=== PATIENT | female | born 2005 | race Hispanic/Latino ===

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

== ENCOUNTER 2025-02-18 00:54 | Emergency (ER) | payer BC ==
--- OUTSIDE RECORDS SUMMARY | 2025-02-18 00:57 | XMS REPORT | Continuity of Care Document ---
Author Name Unknown Address [address] [place] [address] [facility] [place] Address 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 Name Role Phone Aryan Cortes Primary Care Physician [phone] VICKI BARNES Attending Clinician Unavailable Vitor Youssef CPhT Attending Clinician Unavailable GULSHAN LLANES Attending Clinician Unavail able GULSHAN LLANES Attending Clinician Unavail able Gulshan Llanes MD Attending Clinician [phone] GULSHAN LLANES Admitting Clinician Unavail able Payers Payer Name Policy Type Policy Number Effective Date Expirati on Date Source [employer] PPO AND OUT OF STATE [id number] 2020 00:00:00 2021 00:00:00 Allergies, Adverse Reactions, Alerts Allergy Name Allergy Type Status Severity Reaction(s) Onset Date Inactive Date Treating Clinician Comments Source FIRE ANT DRUG INGREDI Active Swelling 01-25 00:00: 00 [facility] Fire Ant Propensi ty to adverse reaction s Active Swelling 01-25 00:00: 00 [facility] Social History Social Habit Start Date Stop Date Quantity Comments Source [facility] of Social function 2024-01-26 00:00:00 2024-01-26 00:00:00 [facility] Tobacco use and exposure 2024-01-26 00:00:00 2024-01-26 00:00:00 Smokeless tobacco non-user [facility] Sex assigned at 2005 00:00:00 2005 00:00:00 [facility] Smoking Status Start Date Stop Date Source Never smoked tobacco [facility] Medications Ordered Medication Name Filled Medication Name Start Date Stop Date Current Medication? Ordering Clinician Indication Dosage Frequency Signature (SIG) Comments Components Source rimegepant (NURTEC ODT) 75 mg TbDL 01-31 00:00: 00 Yes [id number] 75mg Take 1 tablet by mouth as needed for Pain (scale 7-10). [facility] topiramate 25 mg tablet 01-31 00:00: 00 03-02 04:59 :00 No [id number] Take 1 tablet by mouth daily for 7 days, THEN 2 tablets daily for 23 days. [facility] aripiprazol e lauroxil (ARISTADA IM) 01-25 10:12: 05 Yes 10mg by Intramuscu lar route. [facility] zolpidem (AMBIEN) 5 mg tablet 01-25 10:12: 05 Yes 5mg Take 1 tablet by mouth at bedtime as needed for Insomnia. [facility] Vital Signs Vital Name Observation Time Observation Value Comments S sly Systolic blood pressure 2024-01-26 15:08:00 104 mm[Hg] [facility] Diastolic blood pressure 2024-01-26 15:08:00 74 mm[Hg] [facility] Heart rate 2024-01-26 15:08:00 96 /min [facility] Respiratory rate 2024-01-26 15:08:00 18 /min [facility] Body height 2024-01-26 15:08:00 157.5 cm [facility] Body weight 2024-01-26 15:08:00 139.572 kg [facility] BMI 2024-01-26 15:08:00 56.28 kg/m2 [facility] Body mass index (BMI) [Percentile] Per age and sex 2024-01-26 15:08:00 100.00 % [facility] Oxygen saturation in Arterial blood by Pulse oximetry 2024-01-26 15:08:00 98 /min [facility] Procedures Procedure Date / Time Performed Performing Clinicia n Source MR BRAIN WO CONTRAST 2024-02-08 18:14:[address] [facility] Encounters Start Date/Time End Date/Time Encounter Type Admission Type Attending [facility] Care Facility Care Department Encounter ID Source 2021-09-17 22:01:37 Outpatient CRISTINAVICKI ROCK [facility] [id number] [facility] 2021-09-15 17:30:59 Outpatient HÉCTORTERRELLCECILIAVICKI ROCK [facility] [id number] [facility] 2021-04-12 14:04:39 Outpatient VICKI BARNES [facility] [id number] [facility] 2024-02-22 00:00:00 2024-02-22 15:22:20 Specialty Pharmacy Vitor Youssef [facility] [id number] [facility] 2024-02-22 00:00:00 2024-02-22 15:21:21 Specialty Pharmacy Vitor Youssef Gary [facility] [id number] [facility] 2024-02-08 12:21:59 2024-02-08 23:59:00 Outpatient GULSHAN ENG HOWARD [facility] [id number] [facility] 2024-02-08 12:21:59 2024-02-08 23:59:00 Hospital Encounter Gulshan Llanes [facility] [id number] [facility] 2024-02-05 00:00:00 2024-02-05 16:06:44 Telephone Gulshan Llanes [facility] [id number] [facility] 2024-01-26 10:20:00 2024-01-26 11:19:40 Outpatient R GULSHAN LLANES [facility] [id number] [facility] 2024-01-26 10:20:00 2024-01-26 11:19:40 Office Visit Gulshan Llanes [facility] AYAH ZAMORANO[facility] [id number] [facility] Results Test Description Test Time Test Comments Results Resul t Comments Source MR BRAIN WO CONTRAST 2024-01-21 9 18:38:46 MR BRAIN WO CONTRAST COMPARISON: None. HISTORY: Headache, chronic, new features or increased frequency assessment for IIH TECHNIQUE: Multi-weighted multiplanar MRI of the head was done withoutcontrast on 1.5T magnet. FINDINGS: The ventricles and cerebral sulci are normal in caliber and configuration.No midline shift, hydrocephalus or pathological extra-axial fluidcollection is present. The basal cisterns are unremarkable. No restricted diffusion is present to suggest acute/subacute infarct. Noabnormal parenchymal signal abnormality is present. No abnormal gradientblooming. Small left maxillary sinus retention cyst seen.The T2 flow voids for themajor intracranial vessels are unremarkable. No abnormal fluid signal ispresent in the mastoid air cells or the other visualized paranasal airsinuses. [facility] Notes Date/Time Note Provider Source 2024-02-05 16:06:29 Letter sent to pt Mychart. Called and updated pt. [facility] 2024-02-05 15:47:22 Cathy Case is a 18 year old female Pt is calling and states that she was on the phone with a lady named Margareth. Pt wanted to provided the number to her primary provider. [phone] Anne Morley Chris [facility] 2024-02-05 13:55:38 Cathy Shukla is a 18 year old female Pt is calling to see If it was okay if she took a Xanax for her MRI. Pt is asking if Dr can send something to [facility] [address] for approval or to private care Dr. MRI is eli for 02/07. Please advise. [facility]
--- NOTE | 2025-02-18 01:12 | EDPHYS ---
Physician Documentation [facility] Name: Cathy Case Age: 19 yrs Sex: Female : 2005 Arrival Date: 02/18/2025 Time: 00:54 Bed 18 Private MD: ED Physician Scar Ornelas HPI: 02/18 01:10 This 19 yrs old Female presents to ER via Unassigned with complaints of kb Suicidal Ideation. 01:10 Pt is a 19 year old female who presents for suicidal ideations that started over a kb month ago. States she is not sure what has caused these feelings to emerge. STates she has been to her psychiatrist but that is not helping. States she does not have a plan on how she would kill herself. Reports she has had to be hospitalized in the past for this and has attempted suicide in the past.. 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 - Infectious Disease History:: Denies. - Social history:: Smoking status: Patient denies any tobacco usage or history of. ROS: 01:08 Constitutional: As per HPI kb Exam: 01:08 Constitutional: This is a well developed, well nourished patient who is awake, alert, kb and in no acute distress. Head/Face: Normocephalic, atraumatic. ENT: Moist Mucous membranes Respiratory: Respirations even and unlabored. No increased work of breathing. Talking in full sentences Abdomen/GI: Soft, non-tender. No distention Skin: Warm, dry with normal turgor. Normal color. MS/ Extremity: Pulses equal, no cyanosis. Neurovascular intact. Full, normal range of motion. Neuro: Awake and alert, GCS 15, oriented to person, place, time, and situation. 01:08 Cardiovascular: Rate: tachycardic, Vital Signs: 01:03 BP 139 / 97; Pulse 129; Resp 18; Temp 97.6; Pulse Ox 100% on R/A; Weight 136.08 kg; al5 Height 5 ft. 2 in. ; 02:28 BP 127 / 67; Pulse 107; Resp 16; Pulse Ox 100% on R/A; al5 03:30 BP 130 / 83; Pulse 109; Resp 18; Pulse Ox 100% ; kb4 01:03 Body Mass Index 54.87 (136.08 kg, 157.48 cm) - Percentile 99.4 % al5 MDM: 01:07 Medical Screening Exam initiated kb 01:09 Differential diagnosis: depression, suicidal ideations. Data reviewed: vital signs, kb nurses notes. Consideration of Admission/Observation Escalation of care including admission/observation considered. pt will be transferred for inpatient psychiatric treatment on voluntary basis. Historians other than the Patient: Family Member: family. Counseling: I had a detailed discussion with the patient and/or guardian regarding the historical points, exam findings, and any diagnostic results supporting the discharge/admit diagnosis, lab results, the need to transfer to another facility, [facility] does not immediately have the required specialist. 02/18 01:08 Order name: Acetaminophen; Complete Time: 02:22 kb 02/18 01:08 Order name: Basic Metabolic Panel; Complete Time: 02: kb 02/18 01:08 Order name: CBC with Diff; Complete Time: 02: kb 02/18 01:08 Order name: ETOH Level; Complete Time: 02: kb 02/18 01:08 Order name: Hepatic Function; Complete Time: 02: kb 02/18 01:08 Order name: Test, Urine; Complete Time: 01:48 kb 02/18 01:08 Order name: Salicylate; Complete Time: 02: kb 02/18 01:08 Order name: Urine Drug Screen; Complete Time: 02: kb 02/18 01:08 Order name: IV Saline Lock; Complete Time: :32 kb 02/18 01:08 Order name: Labs collected and sent; Complete Time: :32 kb 02/18 01:08 Order name: Suicide Precautions; Complete Time: : kb 02/18 01:08 Order name: Suicide Screening ([place]); Complete Time: :32 kb Administered Medications: 01:39 Drug: NS 0.9% IV 1000 ml IV at 1000 ml once; to be given as a bolus over 60 minutes al5 Route: IV; Rate: 1000 ml; Site: right antecubital; 02:30 Follow up: Response: No adverse reaction; IV Status: Completed infusion; IV Intake: kb4 1000ml 02:30 Drug: NS 0.9% IV 1000 ml IV at 1000 ml once; to be given as a bolus over 60 minutes kb4 Route: IV; Rate: 1000 ml; Site: right antecubital; 03:25 Follow up: Response: No adverse reaction; IV Status: Completed infusion; IV Intake: al5 1000ml Disposition Summary: 02/18/25 01:12 Transfer Ordered Notes: Transfer Location: Psych Facility kb Reason: Higher level of care kb Condition: Stable kb Problem: new kb Symptoms: are unchanged kb Accepting Physician: (02/18/25 03:32) kb4 Diagnosis - Suicidal ideations kb Forms: - Medication Reconciliation Form kb - SBAR form kb Signatures: Dispatcher [employer] EDParis Saab, MANAGER APPLICATION DEVELOPMENT-C MANAGER APPLICATION DEVELOPMENT-Ckb Scar Ornelas MD MD cha Langhorst, Amanda, RN RN al5 Shayy Chan RN RN kb4 Corrections: (The following items were deleted from the chart) 01:08 01:08 ACETAMINOPHEN+C.LAB.BRZ ordered. EDMS EDMS 01:08 01:08 BASIC METABOLIC PANEL+C.LAB.BRZ ordered. EDMS EDMS 01:08 01:08 CBC+H.LAB.BRZ ordered. EDMS EDMS 01:08 01:08 ETHANOL+C.LAB.BRZ ordered. EDMS EDMS 01:08 01:08 HEPATIC FUNCTION+C.LAB.BRZ ordered. EDMS EDMS 01:08 01:08 Test, Urine+UC.LAB.BRZ ordered. EDMS EDMS 01:08 01:08 SALICYLATE+C.LAB.BRZ ordered. EDMS EDMS 01:08 01:08 URINE DRUG SCREEN+UC.LAB.BRZ ordered. EDMS EDMS 03:32 01:12 Dr dupont kb4
[2025-02-18] MEDS ORDERED: NA CHLORIDE 0.9% 1,000 ML ONE ×2 (01:34→02:28)
[2025-02-18 01:55] LABS: Absolute Lymphocytes (CBC) 3.0 K/uL (0.7-4.9); Hematocrit 42.4 % (36.0-45.0); Hemoglobin 13.7 g/dL (12.0-15.0); MCH 25.0 pg (27.0-35.0); MCHC 32.2 g/dL (32.0-36.0); MCV 77.5 fL (80-100); MPV 7.9 fL (7.6-11.3); Nucleated RBC Absolute Count 0.0 (0-0); Nucleated Red Blood Cells % 0.1 % (0-0); RBC Red Blood Cell Count 5.47 M/uL (3.86-4.86); White Blood Count 10.50 thou/uL (4.3-10.9)
[2025-02-18 02:00] LABS: METHAMPHETAM NEGATIVE (NEGATIVE); THC Cannibis NEGATIVE (NEGATIVE)
[2025-02-18 02:21] LABS: ALT/SGPT 30 U/L (13-56); AST/SGOT 14 U/L (15-37); Albumin 3.6 g/dL (3.4-5.0); Albumin/Globulin Ratio 0.8 (1.1-1.8); Alkaline Phosphatase 78 U/L (45-117); Anion Gap 5.5 mEq/L (5.0-15.0); BUN Blood Urea Nitrogen 16 mg/dL (7-18); Bilirubin Indirect, Calculated 0.1 mg/dL (0.2-0.8); Globulin 4.3 g/dL (2.3-3.5); Glucose Level 113 mg/dL (74-106); Potassium 3.5 mEq/L (3.5-5.1)
--- NOTE | 2025-02-18 03:33 | ER ---
Nurse's Notes [facility] Name: Cathy Case Age: 19 yrs Sex: Female : 2005 Arrival Date: 02/18/2025 Time: 00:54 Bed 18 Private MD: Diagnosis: Suicidal ideations Presentation: 02/18 01:03 Chief complaint: Patient states: has had thought of harming herself for the past month, al5 admits to suicidal ideation. 01:03 Coronavirus screen: At this time, the client does not indicate any symptoms associated al5 with coronavirus-19. Ebola Screen: No symptoms or risks identified at this time. Initial Sepsis Screen: Does the patient meet any 2 criteria? HR > 90 bpm. No. Patient's initial sepsis screen is negative. Does the patient have a suspected source of infection? No. Patient's initial sepsis screen is negative. Risk Assessment: Do you want to hurt yourself or someone else? Patient reports no desire to harm self or others. Onset of symptoms was December 2024. 01:03 Method Of Arrival: Ambulatory al5 01:03 Acuity: WYATT 2 al5 Triage Assessment: 01:03 General: Appears in no apparent distress. comfortable, Behavior is calm, cooperative. al5 Pain: Denies pain. EENT: No signs and/or symptoms were reported regarding the EENT system. Neuro: Level of Consciousness is awake, alert, obeys commands, Oriented to person, place, time, situation. Cardiovascular: Capillary refill < 3 seconds Patient's skin is warm and dry. Respiratory: Airway is patent Respiratory effort is even, unlabored, Respiratory pattern is regular, symmetrical. GI: No signs and/or symptoms were reported involving the gastrointestinal system. : No signs and/or symptoms were reported regarding the genitourinary system. Derm: Skin is intact, is healthy with good turgor, Skin is pink, warm \\T\\ dry. normal. Musculoskeletal: Circulation, motion, and sensation intact. Range of motion: intact in all extremities. 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 - Infectious Disease History:: Denies. - Social history:: Smoking status: Patient denies any tobacco usage or history of. Screenin:03 [facility] ED Fall Risk Assessment (Adult) History of falling in the last 3 months, al5 including since admission No falls in past 3 months (0 pts) Confusion or Disorientation No (0 pts) Intoxicated or Sedated No (0 pts) Impaired Gait No (0 pts) Mobility Assist Device Used No (0 pt) Altered Elimination No (0 pt) Score/Fall Risk Level 0 - 2 = Low Risk Oriented to surroundings, Maintained a safe environment, Hourly rounding (assess needs \\T\\ fall precautionary measures) done. Abuse screen: Denies threats or abuse. Denies injuries from another. Nutritional screening: No deficits noted. Tuberculosis screening: No symptoms or risk factors identified. Assessment: 01:03 Reassessment: see triage assessment. al5 01:47 Reassessment: Patient appears in no apparent distress at this time. No changes from kb4 previously documented assessment. Patient and/or family updated on plan of care and expected duration. Pain level reassessed. Patient is alert, oriented x 3, equal unlabored respirations, skin warm/dry/pink. 02:54 Reassessment: Patient appears in no apparent distress at this time. No changes from kb4 previously documented assessment. Patient and/or family updated on plan of care and expected duration. Pain level reassessed. Patient is alert, oriented x 3, equal unlabored respirations, skin warm/dry/pink. gave report to JUVENCIO River at [facility]. 03:24 Reassessment: Patient appears in no apparent distress at this time. No changes from al5 previously documented assessment. Patient and/or family updated on plan of care and expected duration. Pain level reassessed. Patient is alert, oriented x 3, equal unlabored respirations, skin warm/dry/pink. gave report to EMS. Psych: 01:03 [place] Suicide Severity Screening: In the past month, have you wished you were al5 or wished you could go to sleep and not wake up? Patient responds "yes." Based off the client's responses additional C-SSRS screening is required. "In the past month, have you actually had any thoughts of killing yourself?" Patient responds "yes." Based off the client's response additional [place] suicide severity screening questions to be further documented on paper forms. "In your lifetime, have you ever done anything, started to do anything, or prepared to do anything to end your life?" Patient responds "yes." Patient reports suicidal intent occurred greater than 3 months prior. has no plan. Subjective: Patient's mood is sad, Delusions are denied, Hallucinations are denied Having thoughts of suicide. Denies suicidal plan. Objective: Patient is cooperative, Speech is normal, Affect is appropriate. Interventions: Removed personal items and placed in bag. Patient placed in hospital gown. Searched person for dangerous items. Urine collected and sent for urine drug test. Belonging list filled out. Safety Checks: Personal items have been removed. Door is open. Visitors are present. Pt denies substance abuse. Commitment: Patient will be a voluntary commitment. Vital Signs: 01:03 BP 139 / 97; Pulse 129; Resp 18; Temp 97.6; Pulse Ox 100% on R/A; Weight 136.08 kg; al5 Height 5 ft. 2 in. ; 02:28 BP 127 / 67; Pulse 107; Resp 16; Pulse Ox 100% on R/A; al5 03:30 BP 130 / 83; Pulse 109; Resp 18; Pulse Ox 100% ; kb4 01:03 Body Mass Index 54.87 (136.08 kg, 157.48 cm) - Percentile 99.4 % al5 ED Course: 00:59 Patient arrived in ED. gm2 01:03 Arm band placed on right wrist. Patient placed in the treatment room, in view of staff al5 members, on pulse oximetry. 01:03 Patient has correct armband on for positive identification. Placed in gown. Bed in low al5 position. Side rails up X 1. Provided Education on: plan of care. 01:03 No provider procedures requiring assistance completed. al5 01:07 Paris Hein FNP-C is PHCP. kb 01:07 Scar Ornelas MD is Attending Physician. kb 01:21 Triage completed. al5 01:27 Inserted saline lock: 20 gauge in right antecubital area, using aseptic technique. al5 ,using aseptic technique. done by JUVENCIO Sawyer Blood collected. Flushed with 10 mL NS. 01:32 Shayy Chan RN is Primary Nurse. kb4 02:44 FAXED PT [facility]. [facility] 02:56 PT WAS ACCEPTED TO [facility]. ACCEPTING DR. Jatinder LEDESMA, ACCEPTING ADMIN JOANA Rees [facility] TO TRANSFER PT. 03:24 IV discontinued, intact, bleeding controlled, No redness/swelling at site. Pressure al5 dressing applied. Administered Medications: 01:39 Drug: NS 0.9% IV 1000 ml IV at 1000 ml once; to be given as a bolus over 60 minutes al5 Route: IV; Rate: 1000 ml; Site: right antecubital; 02:30 Follow up: Response: No adverse reaction; IV Status: Completed infusion; IV Intake: kb4 1000ml 02:30 Drug: NS 0.9% IV 1000 ml IV at 1000 ml once; to be given as a bolus over 60 minutes kb4 Route: IV; Rate: 1000 ml; Site: right antecubital; 03:25 Follow up: Response: No adverse reaction; IV Status: Completed infusion; IV Intake: al5 1000ml Medication: 01:03 VIS not applicable for this client. al5 Intake: 02:30 IV: 1000ml; Total: 1000ml. kb4 03:25 IV: 1000ml; Total: 2000ml. al5 Outcome: 01:12 ER care complete, transfer ordered by . kb 03:25 Transferred by [facility]. Note: sally oro al5 03:25 Condition: stable 03:25 Instructed on the need for transfer, 03:32 Patient left the ED. kb4 Signatures: Paris Hein, WATERMELON INSPECTOR-C WATERMELON INSPECTOR-CkCindy Osorio 2 Jelly Reddy [facility] Amanda Wray RN RN al5 Shayy Chan RN RN kb4 Corrections: (The following items were deleted from the chart) 01:22 01:21 Arm band placed on right wrist. Patient placed in the treatment room, in view of al5 staff members, on pulse oximetry, al5 :23 01:21 General: Appears in no apparent distress. comfortable, Behavior is calm, al5 cooperative, al5 01:21 Pain: Denies pain. al5 al5 23 01:21 EENT: No signs and/or symptoms were reported regarding the EENT system. al5 al5 01:21 Neuro: Level of Consciousness is awake, alert, obeys commands, Oriented to al5 person, place, time, situation, al5 : Respiratory: Airway is patent Respiratory effort is even, unlabored, Respiratory al5 pattern is regular, symmetrical, al5 : Cardiovascular: Capillary refill < 3 seconds Patient's skin is warm and dry. al5 al5 : GI: No signs and/or symptoms were reported involving the gastrointestinal system. al5 al5 : : No signs and/or symptoms were reported regarding the genitourinary system. al5al5 : Derm: Skin is intact, is healthy with good turgor, Skin is pink, warm \\T\\ dry. al5 normal, al5 : Musculoskeletal: Circulation, motion, and sensation intact. Range of motion: al5 intact in all extremities, al5 02:31 02:30 LMP 01/28/2025, unknown al5 al5
[2025-02-18 03:40] VITALS: TEMP 97.6; O2SAT 100
[2025-02-18 03:43] VITALS: BP 130/83
== END 2025-02-18 03:32 ==
LOC: ER 00:54
DX: R45.851 Suicidal ideations (principal); F32.A Depression, unspecified; F41.9 Anxiety disorder, unspecified; G47.00 Insomnia, unspecified; F90.9 Attention-deficit hyperactivity disorder, unspecified type
CPT/HCPCS: 96361; 85025; 80048; 36415; 81025; 80076; 80307; 96360; 99285; 80143; 80179; 82077; J7030 ×2